=== PATIENT | female | born 1965 | race Caucasian/White ===

== ENCOUNTER 2017-06-17 08:31 | Day surgery (SDC) | payer OTHER ==
[~2017-06-17 08:31] MED LIST: Buffered Lidocaine 0.9% SYRIN* 5 ML/SYR SYRINGE INTRADERM ONE; Dexamethasone IV* 4 MG/ML 1 ML (4 MG) IV SLOW PU ONE; Famotidine IV* 10 MG/ML 2 ML (20 mg) IV ONE
[2017-06-17] MEDS ORDERED: Buffered Lidocaine 0.9% SYRIN* 5 ML/SYR SYRINGE ONE (08:45)
[2017-06-17] MEDS ORDERED: Dexamethasone IV* 4 MG/ML 1 ML (4 MG) ONE (08:45)
[2017-06-17] MEDS ORDERED: Famotidine TAB* 20 MG ONE (08:45)
[2017-06-17] MEDS ORDERED: ceFAZolin 2 GM PREMIX (*) 2 GM/50 ML BAG IVPB ONE (08:45)
[2017-06-17] MEDS ORDERED: Bupivacaine 0.25% SDV* 30 ML ONE (09:33)
[2017-06-17] MEDS ORDERED: Lidocaine 2% PF* 10 ML AMP ONE (09:33)
[2017-06-17] MEDS ORDERED: HYDROcodone/ACETAMIN 5-325 MG* 1 TAB PO PRN (09:40)
[2017-06-17] MEDS ORDERED: fentaNYL* 50 MCG/ML 2 ML VIAL (100 MCG VIAL) IV PRN (09:40)
[2017-06-17] MEDS ORDERED: DiMENhydriNATE IV* 50 MG/ML VIAL IV PUSH PRN (09:40)
[2017-06-17] MEDS ORDERED: Naloxone* 0.4 MG/ML 1 ML VIAL IV PRN (09:40)
[2017-06-17] MEDS ORDERED: Lidocaine 2% PF * 5 ML VIAL ONE (09:43)
[2017-06-17] MEDS ORDERED: fentaNYL* 50 MCG/ML 2 ML VIAL (100 MCG VIAL) ONE (09:43)
[2017-06-17] MEDS ORDERED: Propofol* 10 MG/ML 20 ML BTL IV PUSH ONE (09:43)
[2017-06-17] MEDS ORDERED: Midazolam* 1 MG/ML 5 ML VIAL (5 MG) ONE (09:43)
[2017-06-17] MEDS ORDERED: Ondansetron INJ* 2 MG/ML VIAL ONE (10:43)
[2017-06-17 11:56] VITALS: BP 117/81
--- NOTE | 2017-06-17 22:46 | OP ---
OPERATIVE REPORT: DATE OF OPERATION: 06/17/17 - SDS DATE OF : 63 ATTENDING SURGEON: Josh Lopez MD HORSERADISH MAKER: TD Yanez ANESTHESIOLOGIST: Suzi Munson MD ANESTHESIA: MAC. PRE-OP DIAGNOSIS: Right second and third webspace neuroma. POST-OP DIAGNOSIS: Right second and third webspace neuroma. OPERATIVE PROCEDURE: Neurectomy, right forefoot. DESCRIPTION OF PROCEDURE: The patient was taken to the operating room where longitudinal incision was made through the dorsum of the right second and third metatarsal. A large bulbous neuroma was located just distal to the transverse metatarsal ligament. This was incised with a lamina universal winding machine operator, used to open and expose the webspace. We transected the distal branches of this large neuroma, which was probably 4 mm in diameter at this level. We elevated it and retracted proximally, cutting it off deep to the intramuscular lumbricals and the metatarsals proximally. We then irrigated thoroughly, closing with Vicryl and nylon sutures and a compression dressing applied. [id number]/[facility] #: [id number] [facility]
== END 2017-06-17 12:10 | disposition home or self-care (01) ==
LOC: OR 08:31
PROVIDERS: ATTEND Orthopaedic Surgery
DX: G57.61 Lesion of plantar nerve, right lower limb (principal); E78.5 Hyperlipidemia, unspecified; E03.9 Hypothyroidism, unspecified
CPT/HCPCS: 88304; A9270-GY; J0690; J1100; J2001; J2250; J2405; J2704; J3010

== ENCOUNTER → 2018-11-24 09:30 | Day surgery (SDC) | payer OTHER ==
[~2018-11-24 09:30] MED LIST changes: +Acetaminophen TAB* 325 MG PO PRN; -Buffered Lidocaine 0.9% SYRIN* 5 ML/SYR SYRINGE INTRADERM ONE; +Buffered Lidocaine 1% SYRIN* 1 ML/SYRINGE INTRADERM ONE; +Bupivacaine 0.5%* 50 ML MDV VIAL ONE; -Dexamethasone IV* 4 MG/ML 1 ML (4 MG) IV SLOW PU ONE; +Dexamethasone IV* 4 MG/ML 1 ML (4 MG) ONE; +DiMENhydriNATE IV* 50 MG/ML VIAL IV PUSH PRN; +DiMENhydriNATE IV* 50 MG/ML VIAL ONE; +Famotidine IV* 10 MG/ML 2 ML (20 mg) ONE; +Ketorolac INJ* 30 MG/ML 1 ML VIAL ONE; +Lactated Ringers 1000 ML Bag* 1,000 ML IV SCH; +Midazolam* 1 MG/ML 5 ML VIAL (5 MG) ONE; +Naloxone* 0.4 MG/ML 1 ML VIAL IV PRN; +Ondansetron INJ* 2 MG/ML VIAL ONE; +Propofol* 10 MG/ML 20 ML BTL ONE; +ROPIVACAINE 5 MG/ML 30 ML BTL (0.5%) ONE; +ceFAZolin 2 GM in NS PREMIX(*) 2 GM/100 ML BAG IVPB ONE; +fentaNYL* 50 MCG/ML 2 ML VIAL (100 MCG VIAL) ONE; +oxyCODONE TAB* 5 MG TAB ONE; +oxyCODONE TAB* 5 MG TAB PO PRN
[2018-11-24 12:43] VITALS: BP 109/75
--- NOTE | 2018-11-24 22:28 | OP ---
DATE OF OPERATION: 11/24/18 - [facility] DATE OF : 63 SURGEON: Josh Lopez MD. STUDENT TEACHER: Gerardo Martino PA-C. PRE-OP DIAGNOSIS: Painful retained arthroereisis implant, right sinus tarsi. POST-OP DIAGNOSIS: Painful retained arthroereisis implant, right sinus tarsi. OPERATIVE PROCEDURE: Removal of implant, right sinus tarsi. DESCRIPTION OF PROCEDURE: The patient was taken to the operating room where we opened up the previous palmar incision, 3 cm in length. We dissected down into the sinus tarsi where we located the end of the implant, removing this with a small rongeur. We irrigated the wound thoroughly, closing with 2-0 Monocryl sutures, interrupted nylon sutures for the skin, and a compression dressing applied. [id number]/[facility] #: [id number] [facility]
== END | disposition home or self-care (01) ==
LOC: OR 09:30
PROVIDERS: ATTEND Orthopaedic Surgery
DX: T84.84XA Pain due to internal orthopedic prosthetic devices, implants and grafts, initial encounter (principal); M79.671 Pain in right foot; Y83.1 Surgical operation with implant of artificial internal device as the cause of abnormal reaction of the patient, or of later complication, without mention of misadventure at the time of the procedure; E78.5 Hyperlipidemia, unspecified; E03.9 Hypothyroidism, unspecified
CPT/HCPCS: 88300; A9270-GY; J0690; J1100; J1240; J1885; J2250; J2405; J2704; J2795; J3010; J3490